=== PATIENT | female | born 1990 | race Caucasian/White ===

== ENCOUNTER 2025-04-28 09:36 | Emergency (ER) | payer OTHER, SELFPAY ==
[2025-04-28 09:44] VITALS: BP 124/72; PULSE 85; RESP 18; TEMP 36.9; O2SAT 100
--- OUTSIDE RECORDS SUMMARY | 2025-04-28 09:45 | XMS_ITS | Data Portability ---
Author Organization [facility] Address [address] [place] [address] Care Team Providers Care Vehicle Glass Technician Name Role Phone CARRIE MUNOZ Primary Care Provider ELAINA YA Director Of State Assessment No assessment recorded. Plan of Treatment Reminders Order Date Submit Date Provider Last Modified By Organization Details Last Modified Time Details Appointments ANNUAL 30 2024 08:30A JOSE FortuneN, HOUSE DETECTIVE-C Not available Not available Not available Lab cytology report, thin prep, smear or scraping, cervical or vaginal 2023 024 [facility], [address] [facility] [address], [place], [address], 05/03/2024 14:41:23 thyropero xidase Ab, serum 2023 024 [facility], [address] [facility] [address], [place], [address], 04/29/2024 16:13:53 TSH, ultra-sen sitive, serum 2023 024 [facility], [address], [place], [address], 04/29/2024 16:13:52 CMP, serum or plasma 2023 024 [facility], [address], [place], [address], 04/29/2024 16:13:51 lipid panel, serum 2023 024 [facility], [address], [place], [address], 04/29/2024 16:13:50 CBC 2023 024 [facility], [address], [place], [address], 04/29/2024 16:13:52 Referral None recorded. Procedures None recorded. Surgeries None recorded. Imaging None recorded. Medication Orders None recorded. Patient TargetsNo targets recorded. Patient Instructions Encounter Date Encounter Id Patient Instructions Last Modified By Organization Details Last Modified Time 04/28/2024 [id number] A healthy lifestyle: care instructions Not available 04/28/2024 10:22:33 dermatofibroma information Not available 04/28/2024 10:26:51 Increase intake of fresh fruits, and vegetables. Avoid packaged foods and fast foods. Follow a low salt diet, drink at least 8-10 8oz glasses of water a day, exercise most days of the week. Take all medications as prescribed. Keep appointments with PCP and all specialists. Not available 04/28/2024 10:22:44 follow up as needed, yearly to keep established with provider Not available 04/28/2024 10:22:56 Reason for Referral None Reported. Results Created Date Observation Date Name Description Value Unit Range Abnormal Flag Note LastModifiedBy Organization Detail LastModifiedTime 04/28/20 24 04/29/2024 LIPID PANEL cholesterol, total 152 mg/dL 100-19 9 Not Available [facility] ([facility]) [address] [facility], [place], [address], 04/29/2024 16:13:50 04/28/20 24 04/29/2024 LIPID PANEL triglyceride s 54 mg/dL 0-149 Not Available [facility] ([facility]) [address] [facility], [place], [address], 04/29/2024 16:13:50 04/28/20 24 04/29/2024 LIPID PANEL HDL cholesterol 56 mg/dL >39 Not Available [facility] ([facility]) [address] [facility], [place], [address], 04/29/2024 16:13:50 04/28/20 24 04/29/2024 LIPID PANEL VLDL cholesterol bessie 11 mg/dL 5-40 Not Available [facility] ([facility]) [address] [place], [address], 04/29/2024 16:13:50 04/28/20 24 04/29/2024 LIPID PANEL LDL chol calc ([facility]) 85 mg/dL 0-99 Not Available [facility] ([facility]) [address] [place], [address], 04/29/2024 16:13:50 04/28/20 24 04/29/2024 COMP. METAB OLIC PANEL (14) glucose 78 mg/dL 70-99 Not Available [facility] ([facility]) [address] [place], [address], 04/29/2024 16:13:51 04/28/20 24 04/29/2024 COMP. METAB OLIC PANEL (14) BUN 14 mg/dL 6-20 Not Available [facility] ([facility]) [address] [place], [address], 04/29/2024 16:13:51 04/28/20 24 04/29/2024 COMP. METAB OLIC PANEL (14) creatinine 0.65 mg/dL 0.57-1 .00 Not Available [facility] ([facility]) [address] [place], [address], 04/29/2024 16:13:51 04/28/20 24 04/29/2024 COMP. METAB OLIC PANEL (14) eGFR 119 mL/mi n/1.7 3 >59 Not Available [facility] ([facility]) [address] [place], [address], 04/29/2024 16:13:51 04/28/20 24 04/29/2024 COMP. METAB OLIC PANEL (14) BUN/creatini ne ratio 22 9-23 Not Available [facility] ([facility]) [address] [facility] [place], [address], 04/29/2024 16:13:51 04/28/20 24 04/29/2024 COMP. METAB OLIC PANEL (14) sodium 142 mmol/ L 134-14 4 Not Available [facility] ([facility]) [address] [facility] [place], [address], 04/29/2024 16:13:51 04/28/20 24 04/29/2024 COMP. METAB OLIC PANEL (14) potassium 4.7 mmol/ L 3.5-5. 2 Not Available [facility] ([facility]) [address] [place], [address], 04/29/2024 16:13:51 04/28/20 24 04/29/2024 COMP. METAB OLIC PANEL (14) chloride 104 mmol/ L 96-106 Not Available [facility] ([facility]) [address] [place], [address], 04/29/2024 16:13:51 04/28/20 24 04/29/2024 COMP. METAB OLIC PANEL (14) carbon dioxide, total 24 mmol/ L 20-29 Not Available [facility] ([facility]) [address] [place], [address], 04/29/2024 16:13:51 04/28/20 24 04/29/2024 COMP. METAB OLIC PANEL (14) calcium 9.4 mg/dL 8.7-10 .2 Not Available [facility] ([facility]) [address] [place], [address], 04/29/2024 16:13:51 04/28/20 24 04/29/2024 COMP. METAB OLIC PANEL (14) protein, total 7.1 g/dL 6.0-8. 5 Not Available [facility] ([facility]) [address] [place], [address], 04/29/2024 16:13:51 04/28/20 24 04/29/2024 COMP. METAB OLIC PANEL (14) albumin 4.6 g/dL 3.9-4. 9 Not Available [facility] ([facility]) [address] [place], [address], 04/29/2024 16:13:51 04/28/20 24 04/29/2024 COMP. METAB OLIC PANEL (14) globulin, total 2.5 g/dL 1.5-4. 5 Not Available [facility] ([facility]) [address] [place], [address], 04/29/2024 16:13:51 04/28/20 24 04/29/2024 COMP. METAB OLIC PANEL (14) A/G ratio 1.8 Not Available [facility] ([facility]) [address] [place], [address], 04/29/2024 16:13:51 04/28/20 24 04/29/2024 COMP. METAB OLIC PANEL (14) bilirubin, total 1.0 mg/dL 0.0-1. 2 Not Available [facility] ([facility]) [address] [place], [address], 04/29/2024 16:13:51 04/28/20 24 04/29/2024 COMP. METAB OLIC PANEL (14) alkaline phosphatase 73 IU/L 44-121 Not Available [facility] ([facility]) [address] [place], [address], 04/29/2024 16:13:51 04/28/20 24 04/29/2024 COMP. METAB OLIC PANEL (14) AST (SGOT) 16 IU/L 0-40 Not Available [facility] ([facility]) [address] [facility], [place], [address], 04/29/2024 16:13:51 04/28/20 24 04/29/2024 COMP. METAB OLIC PANEL (14) ALT (SGPT) 10 IU/L 0-32 Not Available [facility] ([facility]) [address] [facility], [place], [address], 04/29/2024 16:13:51 04/28/20 24 04/29/2024 TSH RFX ON ABNOR MAL TO FREE T4 TSH 1.250 uIU/m L 0.450- 4.500 Not Available [facility] ([facility]) [address] [facility], [place], [address], 04/29/2024 16:13:52 04/28/20 24 04/29/2024 CBC, NO DIFFE RENTI AL/PL ATELE T WBC 5.2 x10e3 /uL 3.4-10 .8 Not Available [facility] ([facility]) [address] [facility], [place], [address], 04/29/2024 16:13:52 04/28/20 24 04/29/2024 CBC, NO DIFFE RENTI AL/PL ATELE T RBC 4.19 x10e6 /uL 3.77-5 .28 Not Available [facility] ([facility]) [address] [place], [address], 04/29/2024 16:13:52 04/28/20 24 04/29/2024 CBC, NO DIFFE RENTI AL/PL ATELE T hemoglobin 12.6 g/dL 11.1-1 5.9 Not Available [facility] ([facility]) [address] [place], [address], 04/29/2024 16:13:52 04/28/20 24 04/29/2024 CBC, NO DIFFE RENTI AL/PL ATELE T hematocrit 37.8 % 34.0-4 6.6 Not Available [facility] ([facility]) [address] [facility], [place], [address], 04/29/2024 16:13:52 04/28/20 24 04/29/2024 CBC, NO DIFFE RENTI AL/PL ATELE T MCV 90 fL 79-97 Not Available [facility] ([facility]) [address] [place], [address], 04/29/2024 16:13:52 04/28/20 24 04/29/2024 CBC, NO DIFFE RENTI AL/PL ATELE T MCH 30.1 pg 26.6-3 3.0 Not Available [facility] ([facility]) [address] [place], [address], 04/29/2024 16:13:52 04/28/20 24 04/29/2024 CBC, NO DIFFE RENTI AL/PL ATELE T MCHC 33.3 g/dL 31.5-3 5.7 Not Available [facility] ([facility]) [address] [place], [address], 04/29/2024 16:13:52 04/28/20 24 04/29/2024 CBC, NO DIFFE RENTI AL/PL ATELE T RDW 11.7 % 11.7-1 5.4 Not Available [facility] ([facility]) [address] [place], [address], 04/29/2024 16:13:52 04/28/20 24 04/29/2024 CBC, NO DIFFE RENTI AL/PL ATELE T NRBC - Eff ectiv e June 13, 2024, concepcion alicea [address] 7 CBC, No Diffe renti al, No Plate let will be made non-o rdera ble. [facility] Offer s: [id number] 9 CBC With Diffe renti al/Pl atele t 93605 2 CBC, Plate let, No Diffe renti al Not Available [facility] ([facility]) [address] [place], [address], 04/29/2024 16:13:52 04/28/20 24 04/29/2024 THYRO ID ANTIB ODIES thyroid peroxidase (tpo) Ab 161 IU/mL 0-34 above high normal Not Available [facility] ([facility]) [address] [facility], [place], [address], 04/29/2024 16:13:53 04/28/20 24 04/29/2024 THYRO ID ANTIB ODIES thyroglobuli n antibody 21.9 IU/mL 0.0-0. 9 above high normal Thyro globu mars Antib catherine measu red by Giovanni Castillo er Metho dolog y It shoul d be noted that the prese nce of thyro globu mars antib odies may not be patho genic nor diagn ostic , espec ially at very low level s. The assay russel actur er has found that four perce nt of indiv idual s witho ut evide nce of thyro id disea se or autoi mmuni ty will have posit joann TgAb level s up to 4 IU/mL . Not Available [facility] ([facility]) [address] [facility], [place], [address], 04/29/2024 16:13:53 04/29/20 24 05/02/2024 IGP, APTIM A HPV, RFX 16/18 ,45 HPV aptima NEGATI VE negati ve This nucle ic acid ampli ficat ion test detec ts fourt een high- risk HPV types (16,1 8,31, 33,35 ,39,4 5,51, 52,56 ,58,5 9,66, 68) witho ut diffe renti ation . Not Available [facility] ([facility]) [address] [facility], [place], [address], 05/03/2024 14:41:23 04/29/20 24 05/03/2024 IGP, APTIM A HPV, RFX 16/18 ,45 diagnosis: COMMEN T NEGAT JOANN FOR INTRA EPITH ELIAL LESIO N OR MALIG PRABHA . Not Available [facility] ([facility]) [address] [facility], [place], [address], 05/03/2024 14:41:23 04/29/20 24 05/03/2024 IGP, APTIM A HPV, RFX 16/18 ,45 specimen adequacy: AMINA Brower Satis facto ry for evalu ation . Endoc ervic al and/o r squam ous metap lasti c cells (endo cervi bessie compo nent) are prese nt. Not Available [facility] ([facility]) [address] [facility], [place], [address], 05/03/2024 14:41:23 04/29/20 24 05/03/2024 IGP, APTIM A HPV, RFX 16/18 ,45 clinician provided ICD10: AMINA Brower Z12.4 Not Available [facility] ([facility]) [address] [place], [address], 05/03/2024 14:41:23 04/29/20 24 05/03/2024 IGP, APTIM A HPV, RFX 16/18 ,45 performed by: Rajiv Barrios (ASCP ) Not Available [facility] ([facility]) [address] [facility], [place], [address], 05/03/2024 14:41:23 04/29/20 24 05/03/2024 IGP, APTIM A HPV, RFX 16/18 ,45 . . Not Available [facility] ([facility]) [address] [place], [address], 05/03/2024 14:41:23 04/29/20 24 05/03/2024 IGP, APTIM A HPV, RFX 16/18 ,45 note: AMINA Brower The Pap smear is a scree sana test sharlene means to aid in the detec tion of stacy ligna nt and malig nant condi tions of the uteri ne cervi x. It is not a diagn ostic proce dure and shoul d not be used as the sole means of detec ting cervi bessie cance r. Both false -posi tive and false -nega tive repor ts do occur . Not Available [facility] ([facility]) [address] [place], [address], 05/03/2024 14:41:23 04/29/20 24 05/03/2024 IGP, APTIM A HPV, RFX 16/18 ,45 test methodology: COMMEN T This liqui d based ThinP rep(R ) pap test was joshua means with the use of an image guide gladys vela Not Available [facility] ([facility]) [address] [place], [address], 05/03/2024 14:41:23 04/29/20 24 05/03/2024 IGP, APTIM A HPV, RFX 16/18 ,45 HPV genotype reflex COMMEN T Crite frankie not met, HPV Genot ype not perfo rmed. Not Available [facility] ([facility]) [address] [place], [address], 05/03/2024 14:41:23 Result Notes None recorded. Problems No Known Problems Medical Equipment None Reported. Allergies No known drug allergies Medications Name Sig Start Date Stop Date Status Note LastModified by Organization Details LastModified Time acyclovir 200 mg capsule TAKE ONE CAPSULE EVERY 4 HOURS ( MAXIMUM OF 5 CAPSULES) FOR TWO WEEKS 04/28 completed Not Available Not Available Not Available Vitals Date Recorded Body weight Body mass index (BMI) Body height Oxygen saturation Oxygen saturation in Arterial blood by Pulse oximetry Respiratory rate Body temperature Heart rate Systolic blood pressure Diastolic blood pressure Provider Name and Address Organization Details Last Updated DateTime 4 12104.4 9 g 27.6 kg/m2 154.94 cm 99 % 99 % 16 /min 98 [degF] 62 /min 106 mm[Hg] 70 mm[Hg] BRI Chery [place] - [facility] 4 10:07:20 Date Recorded Body height Body mass index (BMI) Body weight Body temperature Oxygen saturation Oxygen saturation in Arterial blood by Pulse oximetry Heart rate Systolic blood pressure Diastolic blood pressure Provider Name and Address Organization Details Last Updated DateTime 4 154.94 cm 27.4 kg/m2 40338.5 9 g 98.4 [degF] 98 % 98 % 67 /min 105 mm[Hg] 71 mm[Hg] Anali Felipe MA [place] - [place] 4 08:16:49 Social History Question Answer Notes LastModified by Organizat ion Details LastModified Time Tobacco Smoking Status Never Smoker Makeda Desire ALLIAlessandra null, [place] - [place] 04/28/2024 10:03:23 Are You Blind Or Do You Have Difficulty Seeing? No Information n ot available 04/28/2024 What Is Your Level Of Caffeine Consumption? Moderate Coffee Information not available 04/28/2024 In The 14 Days Before Symptom Onset, Have You Had Close Contact With A Laboratory-confirm ed COVID-19 While That Case Was Ill? No Information n ot available 04/28/2024 In The 14 Days Before Symptom Onset, Have You Had Close Contact With A Person Who Is Under Investigation For COVID-19 While That Person Was Ill? No Information not available 04/28/2024 Have You Been To An Area Known To Be High Risk For COVID-19? No Information not available 04/28/2024 Are You Deaf Or Do You Have Serious Difficulty Hearing? No Information not available 04/28/2024 What Type Of Diet Are You Following? REGULAR Information n ot available 04/28/2024 Are There Any Guns Present In Your Home? Yes Information not available 04/28/2024 What Was The Date Of Your Most Recent Tobacco Screening? 04/29/2024 [email or web address] Information not available 04/29/2024 How Many Children Do You Have? 2 Information not available 04/28/2024 What Is Your Relationship Status? Information not available 04/28/2024 Do You Use Your Seat Belt Or Car Seat Routinely? Yes Information not available 04/28/2024 Are You Sexually Active? Yes Information not available 04/28/2024 Do You Have Smoke And Carbon Monoxide Detectors In Your Home? Yes Information not available 04/28/2024 Are You Passively Exposed To Smoke? No Information no t available 04/28/2024 Do You Use Sunscreen Routinely? Yes Information not available 04/28/2024 Has Tobacco Cessation Counseling Been Provided? Yes Information not available 04/28/2024 On What Date Was Tobacco Cessation Counseling Provided? 04/28/2024 Information not available 04/28/2024 Sex: Female Functional Status Question Answer Note LastModified by Organizat ion Details LastModified Time Do you use any illicit or recreational drugs? No Information not available 04/28/2024 Do you or have you ever used any other forms of tobacco or nicotine? No Information not available 04/28/2024 What is your level of alcohol consumption? None Information not available 04/28/2024 Are you currently employed? Yes Information not available 04/28/2024 Are you able to care for yourself? Yes Information n ot available 04/28/2024 What is your occupation? [employer] Information not available 04/28/2024 What is your exercise level? None Information not available 04/28/2024 Mental Status Question Answer Note LastModified by Organization D etails LastModified Time Do you feel stressed (tense, restless, nervous, or anxious, or unable to sleep at night)? [id number] Information not available 04/28/2024 Family History Relationship Description Onset Age of this Age Resolved Age Notes LastModified by Organization Details LastModified Time Mother Disorder of thyroid gland [email or web address] Not available 04/16 10:02:14 Maternal Grandmother Disorder of thyroid gland [email or web address] Not available 04/16 10:02:14 Notes:dad side- unknown canc er Medical History Condition Response Coronary Artery Disease N Other N High Blood Pressure N Atrial Fibrillation N Kidney or Bladder Problems N Depression N COPD N Blood Clots N Skin Problems N Anemia Y Heart Attack (MD) N Diabetes N Anxiety Disorder Y Muscle, Joint, or Bone Problems N Arthritis N Seizures/Epilepsy N Acid Reflux (GERD) N Cancer N Stroke N Asthma N Allergies N Substance Abuse N High Cholesterol N Hepatitis N Liver Disease N Schizophrenia N Heart Failure N Osteoporosis N Gynecological History Statement/Question Response Flow Moderate Date of LMP 04/16/2024 Menses Monthly Y Date of Last Pap Smear Duration of Flow (days) 7 Age at Menarche 12 Current Control Method IUD Age at First Child 16 LMP Approximate Obstetrics History GPAL:G 2 P 2 0 0 2 Type Value Full Term 2 Living 2 Total 2 Immunizations Vaccine Type Date Status Note Provider Nam pat and Address Organization Details Recorded Time Tdap 02/27/2021 completed Anali Felipe MA [place], [place] - [place] 04/29/2024 08:55:48 Past Encounters Encounter ID Performer Location Encounter Start Date Encounter Closed Date Diagnosis/Indication Diagnosis SNOMED-CT Code Diagnosis ICD10 Code Diagnosis Note [id number] MD Sami Reyes (Adult Med) [address] [place] [address] 04/28/2024 09:47:28 05/06/2024 13:52:51 Adult health examination 098507611 Z00.01 Encouraged routine BI DEVELOPER, vision, dental exams, well balanced diet. Overweight 808910836 E66 .3 advised low fat, low cholestero l, low carb diet, regular exercise and weight reduction. Family his tory of Thyroid disorder 125756759 Z83.49 mom and grandma both with thyroid issues Dermatofibroma 009925824 D23.9 pt declined exam, will send photo via portal if any changes [id number] MD Sami BRUCE (CLINICAL LABORATORY TECHNICIAN) [address] [place] [address] 04/29/2024 08:08:54 05/02/2024 12:44:16 Routine gynecologic examination done 0925852638 9101 Z01.419 - Reviewed risks for infection and cancer; ordered screening tests as appropriat e- Patient following with PCP for routine cardiovasc ular disease screening Screening for malignant neoplasm of cervix 664665032 Z12.4 - Due for co-testing ; collected today Contracept ion care management 536148591 Z30.9 - Paraguard IUD in place- Discussed various contracept ion methods available, risks/bene fits, and patient preference s- Patient to discuss tubal vs vasectomy with . RTC if desires Paraguard replacemen t. Will refer to BI DEVELOPER if desires tubal ligation. Health Concerns Section Related Observation LastModified by Organization Detai ls LastModified Time None Recorded Concern Status LastModified by Organization Details LastModified Time None Recorded Advance Directives Directive None Recorded Payers Insurance Date Sequence Insurance Name Policy Number Policy [place] Covered Member ID [place] Member ID Guarantor Name 05/06/[address] [facility] (PP[facility] [id number] Terri Mcdonald [id number] Terri Mcdonald Notes Date Note Type Note Provider Name and Address Organization Details Recorded Time 04/28/2024 text/html Has not a pcp in almost [address] [facility]. denies growth or pain.Last pcp was concerned about pt thyroid but pt never got it checked. Carrie Munoz APN, HOUSE DETECTIVE-C Attn: Accounting,[address] [place], [address], [facility], [facility] 05/05/2024 23:59:40 04/29/2024 text/html Annual well wola n- PCP: CIPRIANO Simons Concerns today- Interested in getting Paraguard removed or replaced. Does not want any more kids. Infection risk- Prior testing for HIV? Negative in - Prior testing for HepC? None on file- History of STIs? No- Declines STI testing- Vaccines due? Tdap, COVID, flu Plans for - Paraguard IUD inserted in 2014 Cancer screenings- Breast cancer: FHx in maternal great-aunt.- Cervical cancer: No history of abnormal Pap. Last performed over 3 years ago.- Colon cancer: No known FHx.- Lung cancer: Never smoker ELAINA YA MD Attn: Accounting,[address] [place], [address], [facility] - [facility] 04/29/2024 16:31:14 OBGyn Episode No OBEpisode recorded.
[2025-04-28 10:00] LABS: EDSTREPNEGPOS1 Negative (Negative)
--- NOTE | 2025-04-28 10:06 | ED_ITS ---
HPI - URI/Sore Throat General Chief Complaint: Upper Respiratory Infection Stated Complaint: Sore Throat Time Seen by Provider: 04/28/25 09:47 Source: patient and RN notes reviewed Mode of arrival: ambulatory Limitations: no limitations History of Present Illness HPI Narrative: Patient presents today complaining of nasal congestion, sore throat, and nausea since yesterday. She has tried some Tylenol with minimal relief and currently rates her pain 3/10. Denies fever, shortness of breath, or difficulty swallowing. Related Data Allergies Allergy/AdvReac Type Severity Reaction Status Date / Time No Known Allergies Allergy Verified 04/28/25 09:49 Review of Systems Review of Systems: CONSTITUTIONAL: Denies body aches, fever, chills, or sweats. EYES: Denies visual changes, redness, or discharge. ENT: Denies rhinorrhea, or otalgia.+ sore throat, congestion CARDIOVASCULAR: Denies chest pain, palpitations, or edema. RESPIRATORY: Denies cough or dyspnea. GASTROINTESTINAL: Denies abdominal pain, vomiting, or diarrhea.+ nausea GENITOURINARY: Denies dysuria or hematuria. SKIN: Denies rash, itching, or wounds. MUSCULOSKELETAL: Denies back pain, joint pain, or myalgia. NEUROLOGIC: Denies headache, numbness, tingling, or weakness. PSYCH: Denies depression or anxiety. PMFSH Comments At time of signature, I have reviewed and agree with nursing past medical, surgical, social and family history unless otherwise noted. Please see nursing chart for further information. There is no relevant family history pertinent to the presenting complaint Exam Narrative: GENERAL: Well-appearing, well-nourished, and in no acute distress. HEAD: Normocephalic, atraumatic. EYES: EOMI. No redness or drainage. Conjunctivae normal. ENT: Mucous membranes pink and moist. Nares clear. No rhinorrhea. TMs normal bilaterally. Throat mildly erythematous. Tonsils 2+ with white exudate. Uvula midline. NECK: Normal AROM. Supple. No lymphadenopathy. CHEST: No respiratory distress. Clear to auscultation. HEART: Regular rate and rhythm. No murmur appreciated. EXTREMITIES: Normal range of motion. No edema. SKIN: Warm, dry, no rash. Capillary refill normal. Normal skin turgor. NEURO: No focal deficits. Alert and oriented x3. Gait steady. PSYCH: Normal affect. No signs of depression or anxiety. Course Course Level of Care: Express Care Visit Vital Signs Vital signs: Vital Signs Temperature 98.5 F 04/28/25 09:44 Pulse Rate 85 04/28/25 09:44 Respiratory Rate 18 04/28/25 09:44 Blood Pressure 124/72 04/28/25 09:44 Pulse Oximetry 100 04/28/25 09:44 Oxygen Delivery Room Air 04/28/25 09:44 Temperature 98.5 F 04/28/25 09:44 Pulse Rate 85 04/28/25 09:44 Respiratory Rate 18 04/28/25 09:44 Blood Pressure 124/72 04/28/25 09:44 Pulse Oximetry 100 04/28/25 09:44 Oxygen Delivery Room Air 04/28/25 09:44 Reviewed MDM - URI/Sore Throat MDM Narrative Medical decision making narrative: Rapid strep negative. Culture pending. Symptoms likely viral in etiology. Discussed [id number] medication use and duration of illness. No prescription medications indicated at this time. Anticipatory guidance given. Differential Diagnosis Differential diagnosis: Likely upper respiratory infection, viral infection, pharyngitis and other (Strep throat) Lab Data Attestation: I reviewed the patient's lab results. Labs: Lab Results 04/28/25 Range/Units 09:58 POC Grp A Strep Screen Negative (Negative) Critical Care Time Critical Care Time Critical Care Time: No Discharge Plan Discharge Clinical Impression: Upper respiratory infection Qualifiers: URI type: unspecified URI Qualified Code(s): J06.9 - Acute upper respiratory infection, unspecified Patient Disposition: Home Condition: Stable Instructions: Upper Respiratory Infection (DC) Additional Instructions: Your rapid strep swab was negative today at [facility]. You will be notified in a few days if the culture comes back positive for strep, and appropriate antibiotics will be called in for you at that time. Your symptoms are likely due to a viral illness, which is not treated with antibiotics. Viral symptoms can be present for up to 7-10 days. Take Tylenol or ibuprofen for fever or pain. Rest and stay hydrated. Follow up with your PCP in 7 days if symptoms are not improving. Go to the ER immediately if you have any difficulty breathing or swallowing. Your blood pressure was elevated above 120/80 today at Urgent Care. This puts you above the threshold for follow up. Please schedule a followup visit with isidro ingram personal physician as soon as possible, for further evaluation and treatment. Even blood pressure exceeding 120/80 may indicate pre-hypertension. Patient Language: Taiwanese Follow-up/Referrals: Alexsander,Carrie Kan APN [Primary Care Provider] - Stand Alone Forms: Work/School Release IP Time of Disposition: 10:09
== END 2025-04-28 10:19 | disposition home or self-care (01) ==
PROVIDERS: Emergency Provider Nurse Practitioner; PCP Nurse Practitioner Family
DX: J06.9 Acute upper respiratory infection, unspecified (principal)
CPT/HCPCS: 87081; 87880; 99203; G0463